=== PATIENT | female | born 1975 | race Caucasian/White ===

== ENCOUNTER 2018-08-05 22:59 | Emergency (ER) | payer MEDICAID ==
[~2018-08-05 22:59] MED LIST: CLIN-96 PO; IBUP-1986 PO; NO HOME MEDS
== END 2018-08-06 00:37 | disposition left against medical advice (07) ==
LOC: ER 23:00
DX: M25.522 Pain in left elbow (principal); Z53.21 Procedure and treatment not carried out due to patient leaving prior to being seen by health care provider; Z79.899 Other long term (current) drug therapy

== ENCOUNTER 2019-03-12 10:40 | Emergency (ER) | payer MEDICAID, OTHER ==
[~2019-03-12] VITALS: Ht 160 cm; Wt 77.0 kg
[~2019-03-12 10:40] MED LIST changes: +CLIN-90 PO; -CLIN-96 PO
[2019-03-12 12:24] VITALS: BP 148/113
[2019-03-12] MEDS ORDERED: HYDROcodone/acetaminophen 10/325mg tab PO STA (12:26)
[2019-03-12] MEDS ORDERED: ACET-3067 PO (13:09)
[2019-03-12] MEDS ORDERED: CYCL-1 PO (13:09)
[2019-03-12] MEDS ORDERED: ketorolac trometh inj. 60 MG/2 ML VIAL IM ONE (13:10)
[2019-03-12] MEDS ORDERED: cyclobenzaprine 10mg tablet PO ONE (13:10)
--- NOTE | 2019-03-12 13:10 | NUR ---
DR SANCHEZ INFORMED OF MECHANISM OF INJURY: NO LEVEL 2 TRAUMA CALLED, NO LABS NEEDED
== END 2019-03-12 13:23 | disposition home or self-care (01) ==
LOC: ER 10:40
DX: S63.501A Unspecified sprain of right wrist, initial encounter (principal); S80.01XA Contusion of right knee, initial encounter; S80.02XA Contusion of left knee, initial encounter; S60.222A Contusion of left hand, initial encounter; F17.200 Nicotine dependence, unspecified, uncomplicated; Z98.890 Other specified postprocedural states; Z56.0 Unemployment, unspecified; Z86.14 Personal history of Methicillin resistant Staphylococcus aureus infection; Z88.8 Allergy status to other drugs, medicaments and biological substances; Z88.6 Allergy status to analgesic agent; V49.59XA Passenger injured in collision with other motor vehicles in traffic accident, initial encounter; Y93.89 Activity, other specified; Y92.413 State road as the place of occurrence of the external cause; Y99.9 Unspecified external cause status
CPT/HCPCS: 73110; 73130; 73564; 96372; 99283; J1885

== ENCOUNTER 2020-04-26 00:52 | Emergency (ER) | payer MEDICAID, OTHER ==
[~2020-04-26] VITALS: Ht 160 cm; Wt 86.4 kg
[~2020-04-26 00:52] MED LIST changes: -CLIN-90 PO; +CLIN-97 PO; +CYCL-1 PO
[2020-04-26 01:01] VITALS: BP 137/103
[2020-04-26 01:18] LABS: BASOPHILS # (AUTO) 0.1 X10'3 (0-0.2); BASOPHILS % (AUTO) 0.7 % (0-1); EOSINOPHILS # (AUTO) 0.1 X10'3 (0-0.9); EOSINOPHILS % (AUTO) 1.2 % (0-6); HEMATOCRIT 38.7 % (35.0-45.0); HEMOGLOBIN 13.3 g/dl (12.0-16.0); LYMPHOCYTES # (AUTO) 1.7 X10'3 (1.1-4.8); LYMPHOCYTES % (AUTO) 18.7 % (21-51); MEAN CORPUSCULAR HEMOGLOBIN 30.2 PG (27.0-31.0); MEAN CORPUSCULAR HGB CONC 34.4 g/dL (33.0-36.5); MEAN CORPUSCULAR VOLUME 87.6 FL (78-98); MONOCYTES # (AUTO) 0.7 X10'3 (0-0.9); MONOCYTES % (AUTO) 7.7 % (2-12); NEUTROPHILS # (AUTO) 6.7 X10'3 (1.8-7.7); NEUTROPHILS % (AUTO) 71.7 % (42-75); PLATELET COUNT 246 X10'3 (140-440); RED BLOOD COUNT 4.42 X10'6 (4.20-5.60); RED CELL DISTRIBUTION WIDTH 14.2 % (11.5-14.5); WHITE BLOOD COUNT 9.3 X10'3 (4.5-11.0)
[2020-04-26 01:32] LABS: ALANINE AMINOTRANSFERASE 25 U/L (12-78); ALBUMIN 3.7 G/DL (3.4-5.0); ALBUMIN/GLOBULIN RATIO 1.1 (1.1-1.5); ALKALINE PHOSPHATASE 118 IU/L (46-116); ANION GAP 8 (8-16); ASPARTATE AMINO TRANSFERASE 9 U/L (10-37); BILIRUBIN,TOTAL 0.4 MG/DL (0.1-1.0); BLOOD UREA NITROGEN 13 MG/DL (7-18); BUN/CREATININE RATIO 13.4 (6.6-38.0); CALCIUM 7.9 MG/DL (8.5-10.1); CHLORIDE 106 MMOL/L (99-107); CREATININE 0.97 MG/DL (0.40-0.90); GLUCOSE 122 MG/DL (70-104); HCG SERUM QL NEGATIVE; POTASSIUM 3.5 MMOL/L (3.5-5.1); SODIUM 140 MMOL/L (135-145); TOTAL CARBON DIOXIDE 25.9 MMOL/L (24-32); TOTAL PROTEIN 7.1 G/DL (6.4-8.2); eGFR 62 ML/MIN
[2020-04-26 01:39] LABS: TROPONIN I < 0.04 NG/ML (0.0-0.05)
== END 2020-04-26 02:26 | disposition home or self-care (01) ==
LOC: ER 00:53
DX: R07.89 Other chest pain (principal); R06.02 Shortness of breath; M79.622 Pain in left upper arm; J41.0 Simple chronic bronchitis; F17.200 Nicotine dependence, unspecified, uncomplicated; Z86.14 Personal history of Methicillin resistant Staphylococcus aureus infection; Z98.891 History of uterine scar from previous surgery; Z56.0 Unemployment, unspecified; Z88.8 Allergy status to other drugs, medicaments and biological substances; Z79.2 Long term (current) use of antibiotics; Z79.899 Other long term (current) drug therapy
CPT/HCPCS: 36415; 71045; 80053; 83880; 84484; 84703; 85025; 93005; 99285

== ENCOUNTER 2020-11-05 15:12 | Emergency (ER) | payer MEDICAID | END 2020-11-05 17:51 | disposition left against medical advice (07) | LOC: ER 15:13 | DX: M79.673 Pain in unspecified foot (principal); Z53.21 Procedure and treatment not carried out due to patient leaving prior to being seen by health care provider ==

== ENCOUNTER 2020-11-07 12:03 | Emergency (ER) | payer MEDICAID | END 2020-11-07 13:51 | disposition left against medical advice (07) | LOC: ER 12:04 | DX: M79.676 Pain in unspecified toe(s) (principal); Z53.21 Procedure and treatment not carried out due to patient leaving prior to being seen by health care provider ==

== ENCOUNTER 2021-04-04 05:32 | Emergency (ER) | payer MEDICAID ==
[~2021-04-04] VITALS: Ht 160 cm; Wt 86.4 kg
[2021-04-04 05:37] VITALS: BP 104/83
== END 2021-04-04 13:10 | disposition left against medical advice (07) ==
LOC: ER 05:33
DX: M79.645 Pain in left finger(s) (principal); Z53.21 Procedure and treatment not carried out due to patient leaving prior to being seen by health care provider
CPT/HCPCS: 73110; 73130

== ENCOUNTER 2021-04-22 19:29 | Emergency (ER) | payer MEDICAID ==
[~2021-04-22] VITALS: Ht 160 cm; Wt 86.4 kg
[2021-04-22 19:37] VITALS: BP 148/100
[2021-04-22] MEDS ORDERED: BUDE180A INH (20:06)
[2021-04-22] MEDS ORDERED: ALBU6.7H9 INH (20:06)
[2021-04-22] MEDS ORDERED: PRED20TA PO (20:06)
== END 2021-04-22 21:24 | disposition home or self-care (01) ==
LOC: ER 19:29
DX: U07.1 COVID-19 (principal); Z56.0 Unemployment, unspecified; Z88.8 Allergy status to other drugs, medicaments and biological substances
CPT/HCPCS: 71045; 87635; 99284; C9803

== ENCOUNTER 2021-10-31 20:19 | Emergency (ER) | payer MEDICAID ==
[~2021-10-31] VITALS: Ht 160 cm; Wt 90.3 kg
[~2021-10-31 20:19] MED LIST changes: +ALBU6.7H9 INH; +BUDE180A INH
[2021-10-31 20:26] VITALS: BP 134/96
[2021-10-31] MEDS ORDERED: LIDOcaine 1% W/epiNEPHrine 1:100,000 20ml vial SQ ONE (22:45)
[2021-10-31] MEDS ORDERED: HYDROcodone/acetaminophen 5mg/325mg tablet PO ONE (22:45)
[2021-10-31] MEDS ORDERED: LIDOCAINE 2% w/EPI 1:100:000 30mL injection MDV**cath lab 1 only SQ ONE (22:50)
[2021-10-31] MEDS ORDERED: SULF1TAB49 PO (23:49)
[2021-10-31] MEDS ORDERED: HYDR-3965 PO (23:50)
[2021-10-31] MEDS ORDERED: sulfamethoxazole/trimethoprim DS (800/160mg) tablet PO ONE (23:55)
== END 2021-11-01 00:13 | disposition home or self-care (01) ==
LOC: ER 20:20
DX: L02.413 Cutaneous abscess of right upper limb (principal); Z86.14 Personal history of Methicillin resistant Staphylococcus aureus infection; Z98.890 Other specified postprocedural states; Z88.5 Allergy status to narcotic agent; Z79.899 Other long term (current) drug therapy; Z79.1 Long term (current) use of non-steroidal anti-inflammatories (NSAID)
CPT/HCPCS: 10060; 99283

== ENCOUNTER 2022-07-03 17:36 | Emergency (ER) | payer MEDICAID ==
[~2022-07-03] VITALS: Ht 162.6 cm; Wt 86.4 kg
[~2022-07-03 17:36] MED LIST changes: +ALBU6.7H14 INH; -ALBU6.7H9 INH
[2022-07-03 18:10] VITALS: BP 149/85
[2022-07-03 19:10] LABS: BASOPHILS # (AUTO) 0.1 X10'3 (0-0.2); BASOPHILS % (AUTO) 0.5 % (0-1); EOSINOPHILS # (AUTO) 0.1 X10'3 (0-0.9); EOSINOPHILS % (AUTO) 0.9 % (0-6); HEMATOCRIT 37.1 % (35.0-45.0); HEMOGLOBIN 12.8 g/dl (12.0-16.0); LYMPHOCYTES # (AUTO) 1.4 X10'3 (1.1-4.8); LYMPHOCYTES % (AUTO) 12.4 % (21-51); MEAN CORPUSCULAR HEMOGLOBIN 30.5 PG (27.0-31.0); MEAN CORPUSCULAR HGB CONC 34.5 g/dL (33.0-36.5); MEAN CORPUSCULAR VOLUME 88.4 FL (78-98); MONOCYTES # (AUTO) 0.8 X10'3 (0-0.9); MONOCYTES % (AUTO) 6.9 % (2-12); NEUTROPHILS # (AUTO) 8.9 X10'3 (1.8-7.7); NEUTROPHILS % (AUTO) 79.3 % (42-75); PLATELET COUNT 235 X10'3 (140-440); RED BLOOD COUNT 4.19 X10'6 (4.20-5.60); RED CELL DISTRIBUTION WIDTH 13.5 % (11.5-14.5); WHITE BLOOD COUNT 11.2 X10'3 (4.5-11.0)
[2022-07-03 19:20] LABS: ALANINE AMINOTRANSFERASE 50 U/L (12-78); ALBUMIN 3.5 G/DL (3.4-5.0); ALBUMIN/GLOBULIN RATIO 0.8 (1.1-1.5); ALKALINE PHOSPHATASE 113 IU/L (46-116); ANION GAP 10 (8-16); ASPARTATE AMINO TRANSFERASE 21 U/L (10-37); BILIRUBIN,TOTAL 0.8 MG/DL (0.1-1.0); BLOOD UREA NITROGEN 11 MG/DL (7-18); BUN/CREATININE RATIO 13.3 (10.0-20.0); CALCIUM 9.1 MG/DL (8.5-10.1); CHLORIDE 104 MMOL/L (99-107); CREATININE 0.83 MG/DL (0.40-0.90); GLUCOSE 101 MG/DL (70-104); LIPASE < 50 U/L (73-393); POTASSIUM 3.7 MMOL/L (3.5-5.1); SODIUM 140 MMOL/L (135-145); TOTAL CARBON DIOXIDE 25.6 MMOL/L (24-32); eGFR 73 ML/MIN
== END 2022-07-04 01:26 | disposition left against medical advice (07) ==
LOC: ER 17:37
DX: K59.00 Constipation, unspecified (principal); Z53.21 Procedure and treatment not carried out due to patient leaving prior to being seen by health care provider
CPT/HCPCS: 36415; 80053; 83690; 85025; 99281

== ENCOUNTER 2022-08-01 18:30 | Emergency (ER) | payer MEDICAID ==
[~2022-08-01] VITALS: Ht 162.6 cm; Wt 88.6 kg
[2022-08-01 19:43] LABS: BASOPHILS % (AUTO) 0.5 % (0-1); EOSINOPHILS # (AUTO) 0.1 X10'3 (0-0.9); HEMOGLOBIN 13.3 g/dl (12.0-16.0); LYMPHOCYTES # (AUTO) 1.1 X10'3 (1.1-4.8); LYMPHOCYTES % (AUTO) 11.1 % (21-51); MEAN CORPUSCULAR HEMOGLOBIN 30.5 PG (27.0-31.0); MEAN CORPUSCULAR HGB CONC 34.1 g/dL (33.0-36.5); MEAN CORPUSCULAR VOLUME 89.4 FL (78-98); MEAN PLATELET VOLUME 9.6 FL (7.4-10.4); MONOCYTES # (AUTO) 0.4 X10'3 (0-0.9); MONOCYTES % (AUTO) 4.5 % (2-12); NEUTROPHILS # (AUTO) 7.9 X10'3 (1.8-7.7); NEUTROPHILS % (AUTO) 82.9 % (42-75); PLATELET COUNT 194 X10'3 (140-440); RED BLOOD COUNT 4.37 X10'6 (4.20-5.60); RED CELL DISTRIBUTION WIDTH 14.4 % (11.5-14.5); WHITE BLOOD COUNT 9.5 X10'3 (4.5-11.0)
[2022-08-01 19:57] LABS: ALANINE AMINOTRANSFERASE 33 U/L (12-78); ALBUMIN 3.9 G/DL (3.4-5.0); ALBUMIN/GLOBULIN RATIO 1.2 (1.1-1.5); ALKALINE PHOSPHATASE 105 IU/L (46-116); ANION GAP 9 (8-16); ASPARTATE AMINO TRANSFERASE 12 U/L (10-37); BILIRUBIN,TOTAL 0.7 MG/DL (0.1-1.0); BLOOD UREA NITROGEN 18 MG/DL (7-18); CALCIUM 8.6 MG/DL (8.5-10.1); CHLORIDE 105 MMOL/L (99-107); CREATININE 1.06 MG/DL (0.40-0.90); GLUCOSE 141 MG/DL (70-104); LIPASE < 50 U/L (73-393); POTASSIUM 3.7 MMOL/L (3.5-5.1); SODIUM 140 MMOL/L (135-145); TOTAL CARBON DIOXIDE 26.1 MMOL/L (24-32); TOTAL PROTEIN 7.1 G/DL (6.4-8.2); eGFR 55 ML/MIN
[2022-08-01 20:23] VITALS: BP 123/85
== END 2022-08-01 20:25 | disposition home or self-care (01) ==
LOC: ER 18:31
DX: T40.601A Poisoning by unspecified narcotics, accidental (unintentional), initial encounter (principal); R11.10 Vomiting, unspecified; Z88.8 Allergy status to other drugs, medicaments and biological substances; Z79.899 Other long term (current) drug therapy; Z88.6 Allergy status to analgesic agent; Z86.14 Personal history of Methicillin resistant Staphylococcus aureus infection; Y92.89 Other specified places as the place of occurrence of the external cause
CPT/HCPCS: 36415; 80053; 83690; 85025; 93005; 99284

== ENCOUNTER 2022-08-14 21:25 | Emergency (ER) | payer MEDICAID ==
[~2022-08-14] VITALS: Ht 162.6 cm; Wt 84.1 kg
[2022-08-14 22:23] LABS: HEMOGLOBIN 12.8 g/dl (12.0-16.0); RED CELL DISTRIBUTION WIDTH 14.6 % (11.5-14.5)
[2022-08-14 22:25] LABS: BASOPHILS # (AUTO) 0.1 X10'3 (0-0.2); BASOPHILS % (AUTO) 0.9 % (0-1); EOSINOPHILS # (AUTO) 0.2 X10'3 (0-0.9); EOSINOPHILS % (AUTO) 3.1 % (0-6); HEMATOCRIT 37.9 % (35.0-45.0); LYMPHOCYTES # (AUTO) 1.9 X10'3 (1.1-4.8); LYMPHOCYTES % (AUTO) 27.2 % (21-51); MEAN CORPUSCULAR HEMOGLOBIN 30.5 PG (27.0-31.0); MEAN CORPUSCULAR HGB CONC 33.8 g/dL (33.0-36.5); MEAN CORPUSCULAR VOLUME 90.4 FL (78-98); MEAN PLATELET VOLUME 9.6 FL (7.4-10.4); MONOCYTES # (AUTO) 0.4 X10'3 (0-0.9); MONOCYTES % (AUTO) 6.2 % (2-12); NEUTROPHILS # (AUTO) 4.3 X10'3 (1.8-7.7); NEUTROPHILS % (AUTO) 62.6 % (42-75); PLATELET COUNT 244 X10'3 (140-440); RED BLOOD COUNT 4.19 X10'6 (4.20-5.60); WHITE BLOOD COUNT 6.9 X10'3 (4.5-11.0)
[2022-08-14 22:27] LABS: ALANINE AMINOTRANSFERASE 23 U/L (12-78); ALBUMIN 3.8 G/DL (3.4-5.0); ALBUMIN/GLOBULIN RATIO 1.3 (1.1-1.5); ALKALINE PHOSPHATASE 108 IU/L (46-116); ANION GAP 6 (8-16); ASPARTATE AMINO TRANSFERASE 7 U/L (10-37); BILIRUBIN,TOTAL 0.4 MG/DL (0.1-1.0); BLOOD UREA NITROGEN 10 MG/DL (7-18); BUN/CREATININE RATIO 10.4 (10.0-20.0); CALCIUM 8.3 MG/DL (8.5-10.1); CHLORIDE 107 MMOL/L (99-107); CREATININE 0.96 MG/DL (0.40-0.90); GLUCOSE 105 MG/DL (70-104); LIPASE 63 U/L (73-393); POTASSIUM 3.5 MMOL/L (3.5-5.1); SODIUM 140 MMOL/L (135-145); TOTAL CARBON DIOXIDE 26.6 MMOL/L (24-32); TOTAL PROTEIN 6.7 G/DL (6.4-8.2); eGFR 62 ML/MIN
[2022-08-14 23:43] LABS: CLARITY,URINE SLIGHTLY CLOUDY (Clear); COLOR,URINE YELLOW (Yellow); GLUCOSE, URINE NEGATIVE (Neg); KETONES,URINE TRACE mg/dl (Neg); LEUKOCYTE ESTERASE ,URINE NEGATIVE (Neg); NITRITES, URINE POSITIVE (Neg); OCCULT BLOOD,URINE LARGE (Neg); PROTEIN,URINE NEGATIVE (Neg); UROBILINOGEN,URINE 0.2 E.U/dL (0.2-1.0)
[2022-08-14 23:44] LABS: URINE HCG NEGATIVE (NEG)
[2022-08-14 23:55] LABS: UA COLLECTION TYPE CLN CATCH MIDSTREAM
[2022-08-15 00:02] LABS: BACTERIA,URINE 4+ /HPF (Neg); MUCUS STRANDS FEW /LPF (Neg); SQUAMOUS EPITHELIAL CELL,UR MODERATE /LPF (FEW); TRANSITIONAL EPI CELLS,URINE FEW /HPF
[2022-08-15 00:03] LABS: CAL OXALATE CRYSTALS 3+ /HPF (NEGATIVE)
[2022-08-15] MEDS ORDERED: CEPH-585 PO (03:00)
[2022-08-15 03:10] VITALS: BP 145/87
== END 2022-08-15 03:12 | disposition home or self-care (01) ==
LOC: ER 21:26
DX: N39.0 Urinary tract infection, site not specified (principal); Z20.822 Contact with and (suspected) exposure to COVID-19; R19.7 Diarrhea, unspecified; J02.9 Acute pharyngitis, unspecified
CPT/HCPCS: 36415; 71046; 80053; 81001; 81003; 81025; 83690; 85025; 87077; 87081; 87088; 87186; 87502; 87503; 87811; 87880; 99284

== ENCOUNTER 2022-08-29 08:54 | Emergency (ER) | payer MEDICAID ==
[~2022-08-29] VITALS: Ht 162.6 cm; Wt 91.0 kg
[~2022-08-29 08:54] MED LIST changes: +CEPH-585 PO
[2022-08-29 08:57] VITALS: BP 147/97
[2022-08-29 09:53] LABS: CLARITY,URINE CLOUDY (Clear); COLOR,URINE YELLOW (Yellow); GLUCOSE, URINE NEGATIVE (Neg); KETONES,URINE NEGATIVE (Neg); LEUKOCYTE ESTERASE ,URINE NEGATIVE (Neg); NITRITES, URINE POSITIVE (Neg); OCCULT BLOOD,URINE NEGATIVE (Neg); PROTEIN,URINE NEGATIVE (Neg); UROBILINOGEN,URINE 0.2 E.U/dL (0.2-1.0)
[2022-08-29 09:55] LABS: UA COLLECTION TYPE CLN CATCH MIDSTREAM
[2022-08-29 10:01] LABS: SQUAMOUS EPITHELIAL CELL,UR MANY /LPF (FEW)
[2022-08-29 10:02] LABS: MUCUS STRANDS MODERATE /LPF (Neg)
[2022-08-29] MEDS ORDERED: CEPH-585 PO (10:03)
[2022-08-29] MEDS ORDERED: CIPR-259 PO (10:03)
[2022-08-29] MEDS ORDERED: cipro (10:03)
[2022-08-29 10:05] LABS: BACTERIA,URINE 3+ /HPF (Neg); RBC,URINE 0-2 /HPF (0-2)
[2022-08-29 10:09] LABS: HYALINE CASTS 0-3 /LPF (NEGATIVE)
[2022-08-29 10:17] LABS: URINE HCG NEGATIVE (NEG)
== END 2022-08-30 07:00 | disposition home or self-care (01) ==
LOC: ER 08:55
DX: N39.0 Urinary tract infection, site not specified (principal); Z88.8 Allergy status to other drugs, medicaments and biological substances; Z98.890 Other specified postprocedural states; Z56.0 Unemployment, unspecified
CPT/HCPCS: 81001; 81025; 99283

== ENCOUNTER 2022-10-31 07:06 | Emergency (ER) | payer MEDICAID ==
[~2022-10-31] VITALS: Ht 162.6 cm; Wt 88.6 kg
[~2022-10-31 07:06] MED LIST changes: +cipro
[2022-10-31 07:10] VITALS: BP 138/91; PULSE 107; RESP 16; TEMP 98.6; O2SAT 98
[2022-10-31] MEDS ORDERED: NICO-687 TOP (08:58)
[2022-10-31] MEDS ORDERED: LORA-269 PO (08:58)
== END 2022-10-31 09:09 | disposition home or self-care (01) ==
LOC: ER 07:06
DX: F41.9 Anxiety disorder, unspecified (principal); F31.9 Bipolar disorder, unspecified; F12.10 Cannabis abuse, uncomplicated; Z86.14 Personal history of Methicillin resistant Staphylococcus aureus infection; Z56.0 Unemployment, unspecified; Z88.8 Allergy status to other drugs, medicaments and biological substances; Z79.899 Other long term (current) drug therapy
CPT/HCPCS: 99283

== ENCOUNTER 2023-02-28 20:12 | Emergency (ER) | payer MEDICAID ==
[~2023-02-28] VITALS: Ht 160 cm; Wt 90.1 kg
[~2023-02-28 20:12] MED LIST changes: +LORA-269 PO
[2023-02-28 20:13] VITALS: BP 144/99; PULSE 99; RESP 18; TEMP 99.4; O2SAT 100
== END 2023-02-28 22:05 | disposition home or self-care (01) ==
LOC: ER 20:13
DX: J06.9 Acute upper respiratory infection, unspecified (principal); Z20.822 Contact with and (suspected) exposure to COVID-19; F12.90 Cannabis use, unspecified, uncomplicated; F15.90 Other stimulant use, unspecified, uncomplicated; Z56.0 Unemployment, unspecified; Z88.8 Allergy status to other drugs, medicaments and biological substances; Z79.899 Other long term (current) drug therapy
CPT/HCPCS: 36415; 87811; 99283

== ENCOUNTER 2023-05-14 22:59 | Emergency (ER) | payer MEDICAID ==
[~2023-05-14] VITALS: Ht 162.6 cm; Wt 84.1 kg
[2023-05-14 23:02] VITALS: BP 117/82; PULSE 93; RESP 18; TEMP 98.3; O2SAT 98
[2023-05-15] MEDS ORDERED: DOXY-224 PO (01:17)
[2023-05-15] MEDS: DOXYCYCLINE 100MG CAPSULE PO STA (01:32)
[2023-05-15] MEDS: HYDROcodone/acetaminophen 5mg/325mg tablet PO ONE (01:35)
== END 2023-05-15 01:48 | disposition home or self-care (01) ==
LOC: ER 22:59
DX: L03.311 Cellulitis of abdominal wall (principal); F12.90 Cannabis use, unspecified, uncomplicated; F15.90 Other stimulant use, unspecified, uncomplicated; Z88.8 Allergy status to other drugs, medicaments and biological substances; Z88.5 Allergy status to narcotic agent; Z79.899 Other long term (current) drug therapy; Z79.2 Long term (current) use of antibiotics; Z79.1 Long term (current) use of non-steroidal anti-inflammatories (NSAID)
CPT/HCPCS: 99283; A6449

== ENCOUNTER 2023-06-09 13:55 | Emergency (ER) | payer MEDICAID ==
[~2023-06-09] VITALS: Ht 160 cm; Wt 89.2 kg
[2023-06-09 14:05] VITALS: BP 148/105; PULSE 107; TEMP 99; O2SAT 98
[2023-06-09 14:49] VITALS: RESP 16
[2023-06-09] MEDS ORDERED: ketorolac trometh. 30mg/ml inj. IM ONE (15:35)
[2023-06-09] MEDS: HYDROcodone/acetaminophen 5mg/325mg tablet PO ONE (15:58)
[2023-06-09] MEDS: ketorolac tromethamine 15mg/ml inj. IM ONE (16:01)
== END 2023-06-09 16:22 | disposition home or self-care (01) ==
LOC: ER 13:56
DX: U07.1 COVID-19 (principal); F31.9 Bipolar disorder, unspecified; F12.10 Cannabis abuse, uncomplicated; F15.10 Other stimulant abuse, uncomplicated; Z86.14 Personal history of Methicillin resistant Staphylococcus aureus infection; Z79.899 Other long term (current) drug therapy; Z79.1 Long term (current) use of non-steroidal anti-inflammatories (NSAID); Z79.2 Long term (current) use of antibiotics
CPT/HCPCS: 36415; 87502; 87503; 87811; 93005; 99284

== ENCOUNTER 2023-11-20 09:39 | Emergency (ER) | payer MEDICAID ==
[~2023-11-20] VITALS: Ht 162.6 cm; Wt 94.5 kg
[~2023-11-20 09:39] MED LIST changes: -CEPH-585 PO
[2023-11-20 10:12] VITALS: TEMP 97.8
[2023-11-20] MEDS ORDERED: BENZ9GEL TOP (10:47)
[2023-11-20] MEDS ORDERED: CLIN300C54 PO (10:47)
[2023-11-20] MEDS ORDERED: HYDR-3965 PO (10:47)
[2023-11-20 10:53] VITALS: BP 122/68; PULSE 84; RESP 16; O2SAT 98
== END 2023-11-20 10:54 | disposition home or self-care (01) ==
LOC: ER 09:39
DX: K04.7 Periapical abscess without sinus (principal); F41.9 Anxiety disorder, unspecified; F32.A Depression, unspecified; F12.90 Cannabis use, unspecified, uncomplicated; F15.90 Other stimulant use, unspecified, uncomplicated; Z88.8 Allergy status to other drugs, medicaments and biological substances; Z79.899 Other long term (current) drug therapy; Z79.1 Long term (current) use of non-steroidal anti-inflammatories (NSAID); Z79.2 Long term (current) use of antibiotics; Z79.51 Long term (current) use of inhaled steroids; Z56.0 Unemployment, unspecified; Z98.890 Other specified postprocedural states
CPT/HCPCS: 99283

== ENCOUNTER 2024-08-28 17:36 | Emergency (ER) | payer MEDICAID ==
[~2024-08-28] VITALS: Ht 162.6 cm; Wt 98.8 kg
[~2024-08-28 17:36] MED LIST changes: +BENZ9GEL TOP; -BUDE180A INH; +BUDE180A5 INH
[2024-08-28 17:38] VITALS: BP 131/89; PULSE 96; RESP 16; TEMP 98.3; O2SAT 99
[2024-08-28 17:57] LABS: BILIRUBIN,URINE NEGATIVE (Neg); CLARITY,URINE SLIGHTLY CLOUDY (Clear); COLOR,URINE YELLOW (Yellow); GLUCOSE, URINE NEGATIVE (Neg); KETONES,URINE NEGATIVE (Neg); LEUKOCYTE ESTERASE ,URINE NEGATIVE (Neg); NITRITES, URINE NEGATIVE (Neg); OCCULT BLOOD,URINE NEGATIVE (Neg); PROTEIN,URINE NEGATIVE (Neg); UROBILINOGEN,URINE 0.2 E.U/dL (0.2-1.0)
[2024-08-28 17:58] LABS: UA COLLECTION TYPE CLN CATCH MIDSTREAM; URINE HCG NEGATIVE (NEG)
[2024-08-28 18:05] LABS: SQUAMOUS EPITHELIAL CELL,UR MODERATE /LPF (FEW); TRANSITIONAL EPI CELLS,URINE FEW /HPF
[2024-08-28 18:06] LABS: BACTERIA,URINE FEW /HPF (Neg); RBC,URINE 0-2 /HPF (0-2); WBC,URINE 0-4 /HPF (0-4)
[2024-08-28 19:05] LABS: BASOPHILS % (AUTO) 0.3 % (0-1); EOSINOPHILS # (AUTO) 0.1 X10'3 (0-0.9); EOSINOPHILS % (AUTO) 0.9 % (0-6); HEMATOCRIT 40.5 % (35.0-45.0); HEMOGLOBIN 13.6 g/dl (12.0-16.0); LYMPHOCYTES # (AUTO) 0.8 X10'3 (1.1-4.8); LYMPHOCYTES % (AUTO) 11.2 % (21-51); MEAN CORPUSCULAR HEMOGLOBIN 30.1 PG (27.0-31.0); MEAN CORPUSCULAR HGB CONC 33.5 g/dL (33.0-36.5); MEAN CORPUSCULAR VOLUME 89.8 FL (78-98); MONOCYTES # (AUTO) 0.4 X10'3 (0-0.9); MONOCYTES % (AUTO) 5.5 % (2-12); NEUTROPHILS % (AUTO) 82.1 % (42-75); PLATELET COUNT 204 X10'3 (140-440); RED BLOOD COUNT 4.51 X10'6 (4.20-5.60); RED CELL DISTRIBUTION WIDTH 14.2 % (11.5-14.5); WHITE BLOOD COUNT 7.4 X10'3 (4.5-11.0)
--- NOTE | 2024-08-28 19:16 | Physician Documentation ---
History of Present Illness ~ Chief Complaint: Diarrhea Stated Complaint: FLU SYMPTOMS Time Seen by MD: 19:08 Primary Medical Doctor: [facility] HPI Patient is seen today with complaints of diarrhea for one week. Patient states she started vomiting a couple of days ago but denies any fever or chills or sick contacts. Patient denies any history of Crohn's or ulcerative colitis or irritable bowel syndrome. Patient states she actually has had diarrhea off and on over the last few months. Patient has no other concern or complaint at this time. She states she has had about 10 bowel movements today that were loose however she just had a few per day the few days before that. She denies any significant abdominal pain or chest pain or shortness of breath. She has no other concern or complaint at this time. She states she does have some lower abdominal discomfort or cramping. Medication Reconciliation Allergies: Coded Allergies: propoxyphene napsylate (Verified Allergy, Intermediate, 08/28/24) tramadol (Verified Adverse Reaction, Unknown, N/V, 08/28/24) Scheduled Albuterol Sulfate (Proventil Hfa), 2 PUFFS INH Q6H Benzocaine (Anbesol), 1 APPLIC TOP Q6H Budesonide (Pulmicort Flexhaler), 2 PUFFS INH Q12H Clindamycin HCL* (Clindamycin HCL*), 1 CAP PO Q6H Ibuprofen (Ibuprofen), 1 TABLET PO TID Scheduled PRN Cyclobenzaprine* (Cyclobenzaprine*), 1 TABLET PO Q8H PRN for muscle spasms Lorazepam (Ativan), 1 TAB PO Q8H PRN for for anxiety/agitation Miscellaneous Medications Home Med List (No Home Medications), (Reported) [cipro] Past Medical History Past Medical History: MRSA Abscess, *PSYCH*, Anxiety, Depression Past Surgical History: abdominal surgery, Alcohol Use: None Drug Use: marijuana, methamphetamine Lives with: Family Lives In: Home Occupation: unemployed Review of Systems Constitutional: Denies: chills, fever, weakness Eyes: Denies: pain, blurred vision ENT: Denies: ear pain, nose pain, throat pain, mouth pain Respiratory: Denies: cough, shortness of breath Cardiovascular: Denies: chest pain, palpitations Gastrointestinal: Denies: abdominal pain, nausea, vomiting Genitourinary: Denies: burning, dysuria Female Genitalia: Denies: vaginal discharge, pelvic pain Neurological: Denies: headache, dizziness Musculoskeletal: Denies: pain, swelling Integumentary: Denies: rash, lesions Allergic/Immunologic: Denies: hives, itching Hematologic/Lymphatic: Denies: no symptoms reported Psychiatric: Denies: depression, anxiety Physical Exam Vital Signs: Temperature: 98.3, Source: Oral, Heart Rate: 96, Respiratory Rate: 16, BP: 131/89, Pulse Oximetry: 99, Weight: 98.800 Oxygen Flow Rate: 0 Physical Exam General: Awake and Alert, no acute distress. HEENT: Conjunctiva pink, Sclera clear, Mucus Membranes moist. Neck: Supple without masses and tenderness. Resp: Unlabored. Lungs clear to auscultation bilaterally. Heart: Regular Rate and rhythm, normal S1 and S2 without murmur, rub or gallop. Abdomen: Soft and non tender no organomegaly. I do not appreciate any rebound tenderness or masses or guarding or significant tenderness of the abdomen in any quadrant. Extremities: No cyanosis,clubbing or edema. Skin: Warm and Dry. Progress Results/Orders Results/Orders Vital Signs 08/28/24 17:38 Temp 98.3 Pulse 96 Resp 16 B/P (MAP) 131/89 Pulse Ox 99 O2 Flow Rate 0 Laboratory Tests Test 08/28/24 17:41 08/28/24 18:41 Urine Specimen Description Cln catch midstream Urine Color Yellow Urine Clarity Slightly cloudy Urine pH 6.0 Urine Specific [place] >=1.030 Urine Protein Negative Urine Glucose (UA) Negative Urine Ketones Negative Urine Occult Blood Negative Urine Nitrite Negative Urine Bilirubin Negative Urine Urobilinogen 0.2 Urine Leukocyte Esterase Negative Urine RBC 0-2 Urine WBC 0-4 Urine Squamous Epithelial Cells Moderate Urine Transitional Epithelial Cells Few Urine Bacteria Few Urine Culture Indicated Not ind Volume Urine Centrifuged 10 ml Urine HCG, Qualitative Negative Urine Comment White Blood Count 7.4 Red Blood Count 4.51 Hemoglobin 13.6 Hematocrit 40.5 Mean Corpuscular Volume 89.8 Mean Corpuscular Hemoglobin 30.1 Mean Corpuscular Hemoglobin Concent 33.5 Red Cell Distribution Width 14.2 Platelet Count 204 Mean Platelet Volume 10.0 Neutrophils (%) (Auto) 82.1 H Lymphocytes (%) (Auto) 11.2 L Monocytes (%) (Auto) 5.5 Eosinophils (%) (Auto) 0.9 Basophils (%) (Auto) 0.3 Neutrophils # (Auto) 6.0 Lymphocytes # (Auto) 0.8 L Monocytes # (Auto) 0.4 Eosinophils # (Auto) 0.1 Basophils # (Auto) 0.0 CBC Comment Chemistry Comments Medical Decision Making Findings Patient is seen today with complaints of diarrhea for one week. Patient states she started vomiting a couple of days ago but denies any fever or chills or sick contacts. Patient denies any history of Crohn's or ulcerative colitis or irritable bowel syndrome. Patient states she actually has had diarrhea off and on over the last few months. Patient has no other concern or complaint at this time. She states she has had about 10 bowel movements today that were loose however she just had a few per day the few days before that. She denies any significant abdominal pain or chest pain or shortness of breath. She has no other concern or complaint at this time. She states she does have some lower abdominal discomfort or cramping. Patient was given dose of Bentyl 20 mg and loperamide 4 mg by mouth in the ED tonight. Patient will be sent home with prescription for the same to be taken as directed. Patient will follow up with primary care provider in 2-5 days if no better as needed sooner. Return to ED with any worsening, concerning or changing symptoms. Shared decision-making utilized tonight with the patient and myself. Departure Disposition: HOME / SELF CARE / HOMELESS Impression: Primary Impression: IBS (irritable bowel syndrome) Qualified Codes: K58.0 - Irritable bowel syndrome with diarrhea Additional Impression: Diarrhea Qualified Codes: R19.7 - Diarrhea, unspecified Condition: Stable Discharge Instructions: Diarrhea, Adult, Irritable Bowel Syndrome, Adult Additional Instructions: Patient was given dose of Bentyl 20 mg and loperamide 4 mg by mouth in the ED tonight. Patient will be sent home with prescription for the same to be taken as directed. Patient will follow up with primary care provider in 2-5 days if no better as needed sooner. Return to ED with any worsening, concerning or changing symptoms. Shared decision-making utilized tonight with the patient and myself. Referrals: NO PRIMARY CARE PROVIDER (PCP) Prescriptions Loperamide Hcl (Loperamide) 2 Mg Capsule 2 CAP PO Q6H for loose stool for 5 Days, #40 CAP 0 Refills Prov: EMILIA BARTLETT 08/28/24 Dicyclomine HCl (Dicyclomine HCl) 20 Mg Tablet 1 TAB PO Q12H for irritable bowel symptoms for 30 Days, #60 TAB 0 Refills Prov: EMILIA BARTLETT 08/28/24 Signature Scribe Signature: No scribe Attestation: No scribe EMILIA BARTLETT [facility] Aug 28, 2024 19:16
[2024-08-28] MEDS ORDERED: DICY20TA17 PO (19:23)
[2024-08-28] MEDS ORDERED: LOPE2CAP PO (19:23)
[2024-08-28 19:25] LABS: ALANINE AMINOTRANSFERASE 45 U/L (12-78); ALBUMIN 3.7 G/DL (3.4-5.0); ALKALINE PHOSPHATASE 118 IU/L (46-116); ANION GAP 10 (8-16); ASPARTATE AMINO TRANSFERASE 22 U/L (10-37); BILIRUBIN,TOTAL 0.7 MG/DL (0.1-1.0); BLOOD UREA NITROGEN 9 MG/DL (7-18); BUN/CREATININE RATIO 11.1 (10.0-20.0); CALCIUM 8.4 MG/DL (8.5-10.1); CHLORIDE 107 MMOL/L (99-107); CREATININE 0.81 MG/DL (0.40-0.90); GLUCOSE 100 MG/DL (70-104); LIPASE 14 U/L (16-77); POTASSIUM 4.1 MMOL/L (3.5-5.1); SODIUM 143 MMOL/L (135-145); TOTAL CARBON DIOXIDE 25.8 MMOL/L (24-32); TOTAL PROTEIN 7.3 G/DL (6.4-8.2); eCRCL 72 ML/MIN; eGFR 75 ML/MIN
[2024-08-28] MEDS: dicyclomine 10 MG capsule PO STA (19:42)
[2024-08-28] MEDS: loperamide 2mg capsule PO STA (19:42)
== END 2024-08-28 19:52 | disposition home or self-care (01) ==
LOC: ER 17:37
DX: K58.0 Irritable bowel syndrome with diarrhea (principal); F12.90 Cannabis use, unspecified, uncomplicated; F15.90 Other stimulant use, unspecified, uncomplicated; F41.9 Anxiety disorder, unspecified; F32.A Depression, unspecified; Z88.5 Allergy status to narcotic agent; Z79.899 Other long term (current) drug therapy; Z56.0 Unemployment, unspecified
CPT/HCPCS: 36415; 80053; 81001; 81025; 83690; 85025; 99283

== ENCOUNTER 2024-10-18 21:15 | Emergency (ER) | payer MEDICAID ==
[~2024-10-18] VITALS: Ht 160 cm; Wt 101.9 kg
[~2024-10-18 21:15] MED LIST changes: +CLIN-224 PO; -CLIN-97 PO; +DICY20TA17 PO; +LOPE2CAP PO
[2024-10-18 21:17] VITALS: TEMP 98.7
--- NOTE | 2024-10-18 21:22 | ELECTROCARDIOGRAPH REPORT ---
[facility] Test Date: 2024-10-18 Test Time: 21:19:48 Pat Name: LLOYD TRENT Department: EMERGENCY ROOM Room: Gender: F Tax Compliance Agent: SKINNY : 1975 Requested By: JANNETH MCCULLOUGH Order Number: [id number] Reading MD: Dr. Janneth Mccullough Measurements Intervals [place] Rate: 102 P: 65 SC: 138 QRS: 45 QRSD: 85 T: 54 QT: 339 QTc: 442 Interpretive Statements Sinus tachycardia Left atrial enlargement Electronically Signed On 10-18-2024 22:27:[address] Janneth Mccullough Please click the below link to view image of tracing.
[2024-10-18 21:39] LABS: MEAN PLATELET VOLUME 9.8 FL (7.4-10.4); RED CELL DISTRIBUTION WIDTH 13.7 % (11.5-14.5)
[2024-10-18 22:00] LABS: CREATININE 0.92 MG/DL (0.40-0.90); PRO BRAIN NATRIURETIC PEPTIDE 45 PG/ML (0-125); TOTAL CARBON DIOXIDE 24.5 MMOL/L (24-32); eCRCL 61 ML/MIN; eGFR 65 ML/MIN
--- NOTE | 2024-10-18 22:09 | Physician Documentation ---
History of Present Illness ~ Chief Complaint: Chest Pain Stated Complaint: CHEST PAIN Time Seen by MD: 21:47 OK to notify your PCP?: Yes Primary Medical Doctor: [facility] Source: patient, RN/, RN notes reviewed, old records Mode of Arrival: POV, Ambulatory Exam Limitations: no limitations HPI This patient is a 48 y/o female who presents to ED with chief complaint of chest pain. Patient states she has had this chest pain intermittently all day, describing it as a sharp pain to her chest, lasting 10-15 seconds at a time. She states when it comes on it is worse with movement. She denies any recent heavy lifting or strenuous exercise. She does note she has been favoring a strained neck for the past few weeks. Patient denies any associated palpitations. When asked, she states she has some shortness of breath during the episodes, but it does not last. She does have a cough but states she smokes. Patient denies any fevers or new leg swelling. She has taken Tylenol and Advil prior to arrival today for her neck pain. Medication Reconciliation Allergies: Coded Allergies: propoxyphene napsylate (Verified Allergy, Intermediate, 08/28/24) tramadol (Verified Adverse Reaction, Unknown, N/V, 08/28/24) Scheduled Albuterol Sulfate (Proventil Hfa), 2 PUFFS INH Q6H Benzocaine (Anbesol), 1 APPLIC TOP Q6H Budesonide (Pulmicort Flexhaler), 2 PUFFS INH Q12H Clindamycin HCL* (Clindamycin HCL*), 1 CAP PO Q6H Cyclobenzaprine* (Cyclobenzaprine*), 1 TAB PO HS Dicyclomine HCl (Dicyclomine HCl), 1 TAB PO Q12H Ibuprofen (Ibuprofen), 1 TABLET PO TID Loperamide Hcl (Loperamide), 2 CAP PO Q6H Scheduled PRN Cyclobenzaprine* (Cyclobenzaprine*), 1 TABLET PO Q8H PRN for muscle spasms Lorazepam (Ativan), 1 TAB PO Q8H PRN for for anxiety/agitation Miscellaneous Medications Home Med List (No Home Medications), (Reported) [cipro] Past Medical History Past Medical History: MRSA Abscess, *PSYCH*, Anxiety, Depression Past Surgical History: abdominal surgery, Smoking Status: Current every day smoker Alcohol Use: None Drug Use: marijuana, methamphetamine Lives with: Family Lives In: Home Occupation: unemployed Review of Systems All Other Systems at this time: Reviewed and Negative Physical Exam Vital Signs: RN Vital Signs have been reviewed: Yes, Temperature: 98.7, Source: Oral, Heart Rate: 96, Respiratory Rate: 16, BP: 128/92, Pulse Oximetry: 99, Weight: 101.900 Oxygen Flow Rate: 0 Physical Exam General: The patient is well developed, well nourished, nontoxic appearing and is in no acute distress. Skin: [place], warm and dry with no rashes. HEENT: Head was normocephalic and atraumatic. Eyes - pupils equal, round, reactive to light and accommodation. Extraocular movements were intact. Conjunctivae were nonicteric. Ears - bilateral tympanic membranes were normal. The mouth and oropharynx were clear with moist mucous membranes. There were no pharyngeal exudates or erythema. Neck: Tender to palpation. Otherwise there was no jugular venous distention, lymphadenopathy, thyromegaly or masses. Chest: Reproducible chest wall pain. Clear to auscultation bilaterally without wheezes, rales or rhonchi. No accessory muscle use. No dullness to percussion. Heart: Rate regular and rhythmic. S1, S2. No murmurs. Palpation of the chest wall was normal. No rubs or thrills. Abdomen: Soft, nontender and nondistended. Positive bowel sounds. No guarding or rebound. No hepatosplenomegaly or palpable masses. Extremities: No cyanosis, clubbing or edema. The patient moves all extremities. Pulses were equal and symmetric. Neurologic: Cranial nerves II-XII were intact. Sensation was intact to light touch throughout. Motor strength was 5/5 in all four extremities. Deep tendon reflexes were intact in both upper and lower extremities. Psychologic: The patient was oriented to person, place and time. The patient d emonstrated appropriate judgement and insight. Progress Results/Orders Reviewed/noted all lab results: Yes Results/Orders Orders - HARPAL VARGAS MD Chest,Single View (10/18/24 21:16) Monitor (10/18/24 21:16) Saline Lock (10/18/24 21:16) Oxygen (10/18/24 21:16) Electrocardiogram (10/18/24 21:16) Completed Orders - HARPAL VARGAS MD Chest,Single View (10/18/24 21:16) Cbc/Diff (10/18/24 21:16) BMP (10/18/24 21:16) PBNP (10/18/24 21:16) Electrocardiogram (10/18/24 21:16) Hs Troponin I W Calculations (10/18/24 21:16) Dexamethasone Tablet (Decadron Tablet) (10/18/24 22:25) Cyclobenzaprine Tablet (Flexeril Tablet) (10/18/24 22:25) Medications Received in ER Medications (Trade) Dose Ordered Sig/Jayshree Route PRN Reason Start Time Stop Time Status Last Admin Dose Admin (Decadron tablet) 12 mg ONCE ONCE PO 10/18/24 22:25 10/18/24 22:26 DC 10/18/24 22:29 12 MG (Flexeril tablet) 10 mg ONCE ONCE PO 10/18/24 22:25 10/18/24 22:26 DC 10/18/24 22:30 10 MG Vital Signs 10/18/24 10/18/24 10/18/24 21:17 21:55 22:40 Temp 98.7 Pulse 96 86 Resp 16 16 22 B/P (MAP) 128/92 138/90 Pulse Ox 99 98 O2 Flow Rate 0 Laboratory Tests Test 10/18/24 21:30 White Blood Count 6.7 Red Blood Count 4.55 Hemoglobin 13.6 Hematocrit 40.1 Mean Corpuscular Volume 88.2 Mean Corpuscular Hemoglobin 29.9 Mean Corpuscular Hemoglobin Concent 33.9 Red Cell Distribution Width 13.7 Platelet Count 256 Mean Platelet Volume 9.8 Neutrophils (%) (Auto) 72.3 Lymphocytes (%) (Auto) 19.9 L Monocytes (%) (Auto) 5.1 Eosinophils (%) (Auto) 1.6 Basophils (%) (Auto) 1.1 H Neutrophils # (Auto) 4.9 Lymphocytes # (Auto) 1.3 Monocytes # (Auto) 0.3 Eosinophils # (Auto) 0.1 Basophils # (Auto) 0.1 CBC Comment Sodium Level 139 Potassium Level 3.8 Chloride Level 103 Carbon Dioxide Level 24.5 Anion Gap 12 Blood Urea Nitrogen 13 Creatinine 0.92 H Estimated GFR/1.73 m2 65 BUN/Creatinine Ratio 14.1 Glucose Level 118 H Calcium Level 8.5 Troponin I High Sensitivity 7 Pro-B-Type Natriuretic Peptide 45 Albumin 4.0 Chemistry Comments Re-Evaluation Re-Evaluation : Re-Evaluation: Improved Progress Patient was seen and examined. Patient is given reassurance. Patient had some reproducible chest wall pain. Symptoms sound and noncardiac in that they were only few brief sec also in the same location along the sternal border. Costochondritis was considered. Patient is also complaining of some neck pain. Patient denies any infectious etiology no fevers chills cough phlegm production she does smoke has a slight chronic smoker's cough but nothing new. She denies any fatigue weakness as far as exertion or cardiac like symptoms. Patient was given a work note. Laboratory work was obtained. CBC was within normal limits no signs of any infection no leukocytosis or left shift chemistry is also within normal limits troponin seven. Patient appeared to have musculoskeletal like complaints received Decadron as well as Flexeril and a prescription for Flexeril. Continuous engine monitor interpretation shows normal sinus rhythm heart rate 90s, no ectopy, normal, my interpretation. Pulse oximetry monitor interpretation shows normal oxygenation at 99% room air, normal, my interpretation. EKG/XRAY/CT/US/VASC/MRI EKG : Additional Comment Patient: LLOYD TRENT Medical Record: [id number] [facility] : 1975, Age: 48Sex: F Location: ER Patient Status: REG ER Service Date/Time: 144245 Ordering Physician: HARPAL VAGRAS MD Exam Name: ELECTROCARDIOGRAM Technologist: [facility] Test Date: 2024-10-18 Test Time: 21:19:48 Pat Name: LLOYD TRENT Department: EMERGENCY ROOM Room: Gender: F Customs Agent: : 1975 Requested By: HARPAL VARGAS Order Number: [id number] Reading MD: Dr. Harpal Vargas Measurements Intervals [place] Rate: 102 P: 65 [place]: 138 QRS: 45 QRSD: 85 T: 54 QT: 339 QTc: 442 Interpretive Statements Sinus tachycardia Left atrial enlargement Electronically Signed On 10-18-2024 22:27:[address] Harpal Vargas Please click the below link to view image of tracing. EKG Date and Time:10/18/242118 Electronically Signed by: HARPAL VARGAS MD Date and Time: 10/18/242226 NO PRIMARY CARE PROVIDER~ cc: ~ Chest X-Ray : Interpreted By: both Additional Comments Patient: LLOYD TRENT Medical Record: [id number] [facility] : 1975, Age: 48 Sex: Female Location: ER Patient Status: [facility] ER Service Date/Time: 10/18/242115 Ordering Physician: HARPAL VARGAS MD Exam: CHEST,SINGLE VIEW CHEST RADIOGRAPH Indication: CP Technique: Single frontal view of the chest was obtained COMPARISON: None FINDINGS: Lines and Tubes: None Lungs: Clear Pleura: No effusion. No pneumothorax. Cardiomediastinal contours: Unremarkable Bones: Unremarkable IMPRESSION: 1. No acute disease. Electronically Signed by:STEVEN GARCIA MD Date & Time: 10/18/242229 Dictated by: STEVEN GARCIA MD Dictation date and time: 10/18/242229 Primary Care Provider: NO PRIMARY CARE PROVIDER cc: HARPAL VARGAS MD ~ Images reviewed by Dr. aSm MD who agrees with above findings. Heart Score: Heart Score Response (Comments) Value History Slightly Suspicious 0 EKG Normal 0 Age 45-64 1 Risk Factors 1 or 2 risk factors 1 Troponin Normal limit 0 Total 2 Medical Decision Making Additional info obtained from: old records Differential Dx:Considerations: Include: angina, aortic dissection, chest wall pain, CHF, costochondritis, gastritis, myocardial infarction, pericarditis, pleuritis, pancreatitis, pneumonia, pneumothorax, other Departure Time of Disposition: 22:25 Disposition: 01 HOME / SELF CARE / HOMELESS Impression: Primary Impression: Non-cardiac chest pain Additional Impression: Neck pain Condition: Stable Discharge Instructions: Musculoskeletal Pain Additional Instructions: Take medication as prescribed. Follow up with your primary care doctor. Return to ER for any new or worsening symptoms. Departure Forms: Excuse form Work or School Excused From: Work Excuse beginning now through the following date: Oct 19, 2024 May Return to full physical activity as of: Oct 20, 2024 Referrals: NO PRIMARY CARE PROVIDER (PCP) Prescriptions Cyclobenzaprine* (Cyclobenzaprine*) 10 Mg Tablet 1 TAB PO HS for muscle spasms for 15 Days, #15 TAB 0 Refills Prov: HARPAL VARGAS MD 10/18/24 Education Educated: Patient Educated regarding: diagnosis, treatment, need for follow up Signature Scribe Signature: Scribed for Harpal Vargas MD by Kelly Huerta 10/18/24 22:25 Attestation: The note accurately reflects work and decisions made by me.Harpal Vargas MD 10/18/24 23:05 HARPAL VARGAS MD Oct 18, 2024 22:09
[2024-10-18] MEDS ORDERED: CYCL-1 PO (22:26)
--- NOTE | 2024-10-18 22:32 | RADIOLOGY REPORT ---
CHEST RADIOGRAPH Indication: CP Technique: Single frontal view of the chest was obtained COMPARISON: None FINDINGS: Lines and Tubes: None Lungs: Clear Pleura: No effusion. No pneumothorax. Cardiomediastinal contours: Unremarkable Bones: Unremarkable IMPRESSION: 1. No acute disease.
[2024-10-18 22:40] VITALS: BP 138/90; PULSE 86; RESP 22; O2SAT 98
== END 2024-10-18 22:43 | disposition home or self-care (01) ==
LOC: ER 21:16
DX: R07.89 Other chest pain (principal); M54.2 Cervicalgia; R06.02 Shortness of breath; R05.9 Cough, unspecified; F12.90 Cannabis use, unspecified, uncomplicated; F17.200 Nicotine dependence, unspecified, uncomplicated; Z88.5 Allergy status to narcotic agent
CPT/HCPCS: 36415; 71045; 80048; 83880; 84484; 85025; 93005; 99285

== ENCOUNTER 2024-10-26 05:48 | Emergency (ER) | payer MEDICAID ==
[~2024-10-26] VITALS: Ht 160 cm; Wt 86.1 kg
[2024-10-26 06:00] VITALS: TEMP 97.9
--- NOTE | 2024-10-26 06:10 | Physician Documentation ---
History of Present Illness ~ Chief Complaint: Eye Pain Stated Complaint: EYE PAIN Time Seen by MD: 06:07 Primary Medical Doctor: [facility] HPI 48-year-old female presenting with left eye irritation that started earlier this morning. She states that she was removing the cap off of a [place] air freshener when some [place] liquid sprayed into her left eye. She started having immediate burning sensation/irritation. Reports that her vision is fine but that her eye is extremely irritated and uncomfortable especially when she exposes it to light. No other reports of any trauma to the eye. She has kept it closed and covered and denies rubbing it excessively. She does not wear contact lenses. Medication Reconciliation Allergies: Coded Allergies: propoxyphene napsylate (Verified Allergy, Intermediate, 10/26/24) tramadol (Verified Adverse Reaction, Unknown, N/V, 10/26/24) Scheduled Albuterol Sulfate (Proventil Hfa), 2 PUFFS INH Q6H Benzocaine (Anbesol), 1 APPLIC TOP Q6H Budesonide (Pulmicort Flexhaler), 2 PUFFS INH Q12H Clindamycin HCL* (Clindamycin HCL*), 1 CAP PO Q6H Cyclobenzaprine* (Cyclobenzaprine*), 1 TAB PO HS Dicyclomine HCl (Dicyclomine HCl), 1 TAB PO Q12H Ibuprofen (Ibuprofen), 1 TABLET PO TID Loperamide Hcl (Loperamide), 2 CAP PO Q6H Scheduled PRN Cyclobenzaprine* (Cyclobenzaprine*), 1 TABLET PO Q8H PRN for muscle spasms Lorazepam (Ativan), 1 TAB PO Q8H PRN for for anxiety/agitation Miscellaneous Medications Home Med List (No Home Medications), (Reported) [cipro] Past Medical History Past Medical History: No Pertinent History, MRSA Abscess, *PSYCH*, Anxiety, Depression Past Surgical History: abdominal surgery, Alcohol Use: None Drug Use: marijuana, methamphetamine Lives with: Family Lives In: Home Occupation: unemployed Review of Systems All Other Systems at this time: Reviewed and Negative Physical Exam Vital Signs: Temperature: 97.9, Source: Oral, Heart Rate: 98, Respiratory Rate: 18, BP: 132/92, Pulse Oximetry: 99, Weight: 86.120 Physical Exam I have reviewed the triage vitals. CONST: Well developed and well nourished. In no acute distress HENT: Head Atraumatic EYES: Pupils are equal, round and reactive to light. Normal conjunctiva. Wood's lamp exam with fluorescein indicating no abrasions or other abnormalities. NECK: Normal range of motion. Supple. CARDIO: Normal rate and regular rhythm. No murmurs, rubs, or gallops. S1, S2. PULM/CHEST: No respiratory distress. Lungs clear to auscultation. No wheeze ABD: Soft and nontender. Nondistended. Bowel sounds normal. No guarding. : Exam deferred MSK: No edema. No deformity. NEURO: Alert and oriented to person, place and time. Moving all extremities SKIN: Warm and dry. PSYCH: Normal mood and affect. Good eye contact. Progress Results/Orders Results/Orders Orders - DELMER TRENT MD Eye Procedure (10/26/24 ) Completed Orders - DELMER TRENT MD Tetracaine 0.5% Ophth Drops (Tetravisc 0 (10/26/24 06:20) Vital Signs 10/26/24 10/26/24 05:52 06:00 Temp 96.3 97.9 Pulse 95 98 Resp 15 18 B/P (MAP) 145/65 132/92 (105) Pulse Ox 99 99 Medical Decision Making Additional Comment This is a 48-year-old female presenting with left eye chemical conjunctivitis. Tetracaine eyedrops were applied and was lamp exam performed which was normal. Patient's visual acuity is normal. No other foreign bodies visualized and remainder of exam is normal. The left eye was irrigated for approximately 20 minutes with normal saline. After the irrigation the eye was reexamined and there was a normal exam. Patient reported significant improvement in her symptoms. Advised the patient on using artificial tears as needed for comfort. Also recommended cool compresses for the next couple of days as needed for comfort. I explained to her that this is a transient irritation, is nontoxic and should resolve. Should her symptoms worsen however she was advised she needs to return promptly to the emergency department or follow up with Ophthalmology. Departure Disposition: HOME / SELF CARE / HOMELESS Impression: Primary Impression: Chemical conjunctivitis of left eye Discharge Instructions: Chemical Conjunctivitis, Adult Additional Instructions: Please use artificial tears as needed to keep eyes lubricated and comfortable. You may use cold compresses as well as needed. Monitor her symptoms for full improvement and resolution. Return to the ED promptly or follow up with Ophthalmology with any acutely worsening symptoms. Referrals: NO PRIMARY CARE PROVIDER (PCP) Signature Scribe Signature: 1 Attestation: 1 DELMER TRENT MD Oct 26, 2024 06:10
[2024-10-26] MEDS: TETRACAINE 0.5% 4 ML OPHTHALMIC DROPS LEFTEYE ONE (06:39)
[2024-10-26 08:02] VITALS: BP 127/84; PULSE 87; RESP 16; O2SAT 99
== END 2024-10-26 08:05 | disposition home or self-care (01) ==
LOC: ER 05:48
DX: H10.212 Acute toxic conjunctivitis, left eye (principal); F12.90 Cannabis use, unspecified, uncomplicated; F15.90 Other stimulant use, unspecified, uncomplicated; Z88.5 Allergy status to narcotic agent
CPT/HCPCS: 99283; J7030

== ENCOUNTER 2025-01-01 01:33 | Emergency (ER) | payer MEDICAID ==
[~2025-01-01] VITALS: Ht 160 cm; Wt 90.9 kg
[2025-01-01 01:34] VITALS: BP 147/103; PULSE 106; RESP 16; TEMP 97.1; O2SAT 98
--- NOTE | 2025-01-01 02:41 | Physician Documentation ---
History of Present Illness ~ Chief Complaint: Ankle pain Stated Complaint: ANKLE PAIN Time Seen by MD: 02:40 Primary Medical Doctor: [facility] HPI Patient presents to the emergency room with pain in her left ankle and heel. Symptoms has been going on this past week. No falls or traumas reported. No prior instances. No history of gout Tetanus witin 5 years: Yes Medication Reconciliation Allergies: Coded Allergies: propoxyphene napsylate (Verified Allergy, Intermediate, 01/01/25) tramadol (Verified Adverse Reaction, Unknown, N/V, 01/01/25) Scheduled Acetaminophen (Tylenol Extra Strength), 2 TABLET PO Q6H Albuterol Sulfate (Proventil Hfa), 2 PUFFS INH Q6H Benzocaine (Anbesol), 1 APPLIC TOP Q6H Budesonide (Pulmicort Flexhaler), 2 PUFFS INH Q12H Clindamycin HCL* (Clindamycin HCL*), 1 CAP PO Q6H Cyclobenzaprine* (Cyclobenzaprine*), 1 TAB PO HS Dicyclomine HCl (Dicyclomine HCl), 1 TAB PO Q12H Ibuprofen (Ibuprofen), 1 TABLET PO TID Ibuprofen* (Motrin*), 800 MG PO Q6H Loperamide Hcl (Loperamide), 2 CAP PO Q6H Scheduled PRN Cyclobenzaprine* (Cyclobenzaprine*), 1 TABLET PO Q8H PRN for muscle spasms Lorazepam (Ativan), 1 TAB PO Q8H PRN for for anxiety/agitation Miscellaneous Medications Home Med List (No Home Medications), (Reported) [cipro] Past Medical History Past Medical History: No Pertinent History, MRSA Abscess, *PSYCH*, Anxiety, Depression Past Surgical History: abdominal surgery, Alcohol Use: None Drug Use: marijuana, methamphetamine Lives with: Family Lives In: Home Occupation: unemployed Review of Systems ROS All review of systems negative except as per HPI Physical Exam Vital Signs: Temperature: 97.1, Source: Oral, Heart Rate: 106, Respiratory Rate: 16, BP: 147/103, Pulse Oximetry: 98, Weight: 90.910 Oxygen Flow Rate: 0 Physical Exam General: Patient is awake, alert, oriented x4 in no acute distress and well appearing.~ Head: Normocephalic and atraumatic. Eyes: Conjunctival normal. EOMI. PERRL. ENT: Mucous membranes moist. Neck: Supple, trachea is midline. Chest: Clear to auscultation bilaterally without rales, rhonchi, or wheezes. There is no accessory muscle use or retractions. Cardiac: RRR without murmurs, gallops, or rubs. Abd: Soft, nondistended, nontender, with normoactive bowel sounds. No guarding, rebound, or rigidity. Extremities: Right lower extremity normal, left lower extremity with tenderness to palpation to bottom of heel without other abnormalities Progress Results/Orders Results/Orders Orders - YAKOV JOSEPH MD Foot, Complete (3vw Min) (01/01/25 02:45) Ortho Orders (01/01/25 02:49) Completed Orders - YAKOV JOSEPH MD Foot, Complete (3vw Min) (01/01/25 02:45) Vital Signs 01/01/25 01:34 Temp 97.1 Pulse 106 Resp 16 B/P (MAP) 147/103 Pulse Ox 98 O2 Flow Rate 0 EKG/XRAY/CT/US/VASC/MRI Bone/Soft Tissue X-Ray (Ext.) : Additional Comment Ankle series interpreted by myself is negative for fractures dislocations or foreign bodies. Medical Decision Making Findings Patient presented to the emergency room with pain to her left foot as per HPI. Differentials include but are not limited to fractures, plantar fasciitis, Achilles tendon rupture, soft tissue injury therefore x-ray performed which was reassuring. Patient requesting a boot and we will give her one with conservative management discussed. Departure Disposition: HOME / SELF CARE / HOMELESS Impression: Primary Impression: Foot pain Condition: Stable Discharge Instructions: Foot Pain Referrals: NO PRIMARY CARE PROVIDER (PCP) Prescriptions Acetaminophen (Tylenol Extra Strength) 500 Mg Tablet 2 TABLET PO Q6H, #20 TABLET 3 Refills Prov: YAKOV JOSEPH MD 01/01/25 Ibuprofen* (Motrin*) 400 Mg Tablet 800 MG PO Q6H, #60 TAB Prov: YAKOV JOSEPH MD 01/01/25 Signature Scribe Signature: No scribe Attestation: The note accurately reflects work and decisions made by me.Yakov Joseph MD 01/01/25 02:48 YAKOV JOSEPH MD Jan 01, 2025 02:41
[2025-01-01] MEDS ORDERED: IBUP-1984 PO (02:48)
[2025-01-01] MEDS ORDERED: ACET-812 PO (02:48)
--- NOTE | 2025-01-01 03:56 | RADIOLOGY REPORT ---
CLINICAL INDICATION: pain TECHNIQUE: 3 views DI FOOT, COMPLETE (3VW MIN) Comparison: WRIST, COMPLETE (3VW MIN) on DOS: 04/04/21, HAND, COMPLETE (3VW MIN) on DOS: 04/04/21 FINDINGS: No acute fracture or joint malalignment. Nonweightbearing evidence of hallux valgus and bunion formation with prominent soft tissues overlying the 1st metatarsal head. 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 Remaining osseous structures and soft tissues are unremarkable. Small calcaneal enthesophytes. IMPRESSION: 1. No acute osseous finding of the left foot. 2. Probable hallux valgus and bunion formation with overlying soft tissue swelling, correlate with symptoms and physical exam.
== END 2025-01-01 03:54 | disposition home or self-care (01) ==
LOC: ER 01:34
DX: M25.572 Pain in left ankle and joints of left foot (principal); F41.9 Anxiety disorder, unspecified; F32.A Depression, unspecified; F12.90 Cannabis use, unspecified, uncomplicated; F15.90 Other stimulant use, unspecified, uncomplicated; Z88.5 Allergy status to narcotic agent; Z79.899 Other long term (current) drug therapy; Z56.0 Unemployment, unspecified
CPT/HCPCS: 73630; 99283; L4360